=== PATIENT | male | born 1990 | race Caucasian/White ===

== ENCOUNTER → 2020-01-25 | Outpatient (CLI) | payer BC ==
--- NOTE | 2020-01-25 13:58 | CT ---
EXAMINATION TYPE: CT chest w con DATE OF EXAM: 01/25/2020 COMPARISON: Outside chest x-ray HISTORY: Fever and cough, abnormal x-ray CT DLP: 250.1 mGycm. Automated Exposure Control for Dose Reduction was Utilized. TECHNIQUE: CT scan of the thorax is performed following with IV Contrast, patient injected with 100 mL of Isovue 300. FINDINGS: LUNGS: Corresponding to outside chest x-ray there is dense wedge-shaped consolidation involving the p osterior inferior aspect left upper lobe with some air bronchograms centrally. Medial to this in the left upper lobe there are additional areas of groundglass opacity extending along the course of the m ajor and to lesser degree the minor fissure. There is relative sparing of the left lower lobe with so me areas of involvement groundglass opacity seen in the lingula. Right lung shows mild apical scarring otherwise is clear. No pleural effusion or pneumothorax bilater ally. Tracheobronchial tree patent. MEDIASTINUM: There are no greater than 1 cm hilar or mediastinal lymph nodes. No cardiomegaly or pe ricardial effusion is seen. OTHER: No additional significant abnormality is seen. IMPRESSION: As above, findings favor left upper lobe pneumonia with some additional involvement in th e lingula thought present. Right lung is clear. Concern for bonds virus noted but findings are nonsp ecific and felt unlikely but not entirely excluded as there are no effusions, adenopathy, or cavitati on present.
[2020-01-25 14:36] LABS: Basophils % (A) 0 %; Eosinophils % (A) 0 %; HCT 42.7 % (39.0-53.0); Lymphocytes # (A) 0.6 k/uL (1.0-4.8); Lymphocytes % (A) 5 %; MCH 28.4 pg (25.0-35.0); MCHC 32.7 g/dL (31.0-37.0); MCV 86.8 fL (80.0-100.0); Mean Platelet Volume 7.4; Monocytes # (A) 0.6 k/uL (0-1.0); Monocytes % (A) 5 %; Neutrophils # (A) 10.2 k/uL (1.3-7.7); Neutrophils % (A) 88 %; Platelet Count 241 k/uL (150-450); RBC 4.91 m/uL (4.30-5.90); RDW 12.7 % (11.5-15.5); WBC 11.6 k/uL (3.8-10.6)
[2020-01-25 14:41] LABS: ALT 20 U/L (4-49); AST 32 U/L (17-59); African American GFR (CKD) >90 (>60 ml/min/1.73 sqM); Albumin 4.3 g/dL (3.5-5.0); Alkaline Phosphatase 71 U/L (38-126); Anion Gap 10 mmol/L; Blood Urea Nitrogen 13 mg/dL (9-20); Calcium 9.3 mg/dL (8.4-10.2); Carbon Dioxide 27 mmol/L (22-30); Chloride 98 mmol/L (98-107); Glucose 98 mg/dL (74-99); Non-African American GFR(CKD) >90 (>60 ml/min/1.73 sqM); Potassium 4.2 mmol/L (3.5-5.1); Sodium 135 mmol/L (137-145); Total Bilirubin 1.3 mg/dL (0.2-1.3); Total Protein 7.7 g/dL (6.3-8.2)
[2020-01-25 16:16] LABS: Erythrocyte Sedimentation Rate 63 mm/hr (0-15)
== END | disposition home or self-care (01) ==
LOC: RADCTMAIN 13:02
PROVIDERS: ATTEND Family Medicine
DX: J18.1 Lobar pneumonia, unspecified organism (principal)
CPT/HCPCS: 80053; 85652; 85025; 86141; 71260; Q9967